=== PATIENT | male | born 1970 | race American Indian/Alaskan Native ===

== ENCOUNTER 2018-08-09 07:33 | Emergency (ER) | payer MEDICARE, MEDICAID ==
[2018-08-09 07:34] VITALS: BMI 33.4
[2018-08-09 08:08] VITALS: BP 185/94; PULSE 82; RESP 16; TEMP 99.5; O2SAT 99
--- NOTE | 2018-08-09 08:29 | C.PDOC ---
History Of Present Illness 48 y/o male pt sent to the ER by dialysis center with EMS for being drowsy. Pt usually takes dialysis Saturday, and Saturday. Pt was unable to receive dialysis today due to drowsiness. As per pt, he took xanax and heroin last night and this morning. Pt does not have any complaints at this time. Time Seen by Provider: 08/09/18 07:48 Chief Complaint (Nursing): Weakness/Neurological Deficit History Per: Patient History/Exam Limitations: no limitations Onset/Duration Of Symptoms: Hrs Current Symptoms Are (Timing): Still Present Past Medical History Reviewed: Historical Data, Nursing Documentation, Vital Signs Vital Signs: Last Vital Signs Temp 99.5 F 08/09/18 07:41 Pulse 82 08/09/18 07:41 Resp 16 08/09/18 07:41 BP 185/94 H 08/09/18 07:41 Pulse Ox 99 08/09/18 07:41 Primary Care Provider: Jignesh Peck - Medical History PMH: Bronchitis, Diabetes (IDDM), HTN, Pneumonia (2 yrs ago) - [facility] Procedures EXCISE CORD/EPID LES NEC (02/10/14) OTH & OPEN REPAIR INDIRECT INGUINAL HERNIA W GRFT OR PROSTH (02/10/14) Family History: States: No Known Family Hx - Social History Hx Alcohol Use: No Hx Substance Use: Yes (herion cocaine iv drug abuse clean x 2 yrs) Review Of Systems Except As Marked, All Systems Reviewed And Found Negative. Constitutional: Positive for: Other (drowsiness ) Gastrointestinal: Negative for: Nausea, Vomiting Neurological: Negative for: Weakness, Numbness Physical Exam - Physical Exam Appears: Non-toxic, No Acute Distress Skin: Warm, Dry Head: Normacephalic Eye(s): bilateral: PERRL, EOMI Chest: Symmetrical Cardiovascular: Rhythm Regular Respiratory: Normal Breath Sounds Extremity: Normal ROM (x4) Neurological/Psych: Oriented x3, Normal Speech, Normal Cognition, Normal Motor, Normal Sensation, Other (follows commands, resposive ) ED Course And Treatment O2 Sat by Pulse Oximetry: 99 (RA) Pulse Ox Interpretation: Normal Progress Note: Plans: -- chem labs. -- blood work. -- EKG. -- CXR. -- CT scan. Nurse found pt was taking some pills he had on him during his visit. Pt was told her had to be searched and became agitated. Pt states he does not want anyone to touch him and wants to leave without being treated. Pt was told the risk if he doesn't get treated. Pt verbalizes understanding. Pt left AMA. Medical Decision Making Medical Decision Making: This patient is choosing to leave against medical advice. I have personally explained to the patient that choosing to do so may result in permanent bodily harm or . I have discussed at great length that without further evaluation and monitoring there may be unforeseen circumstances and/or deterioration causing permanent bodily harm or as a result of their choice. The patient is alert, oriented, and shows the mental capacity to make clear decisions regarding the patients health care at this time. The patient continues to wish to leave against medical advice. In light of the patients decision to leave AMA, follow-up has been arranged and the patient is aware of the importance of following up as instructed. The patient has been advised that they should return to the ED immediately if they change their mind at any time, or if their condition begins to change or worsen in any way. Disposition - Disposition Disposition: AGAINST MEDICAL ADVICE Disposition Time: 08:29 Condition: FAIR Instructions: Weakness (ED) Forms: [facility] (Stateless) - Clinical Impression Clinical Impression: Weakness, Drug abuse, ESRD (end stage renal disease) on dialysis - PA / CHIP PERSON / Resident Statement MD/ has reviewed & agrees with the documentation as recorded. - Scribe Statement The provider has reviewed the documentation as recorded by the Logna Franz Do All medical record entries made by the Scribe were at my direction and personally dictated by me. I have reviewed the chart and agree that the record accurately reflects my personal performance of the history, physical exam, medical decision making, and the department course for this patient. I have also personally directed, reviewed, and agree with the discharge instructions and disposition.
--- NOTE | 2018-08-13 00:13 | CARD ---
APPROVED REPORT Date of service: 08/09/2018 EKG Measurement Heart [id number] <Conclusion> Normal sinus rhythm Possible Left atrial enlargement Left axis deviation Incomplete right bundle branch block Left ventricular hypertrophy Cannot rule out Septal infarct, age undetermined Abnormal ECG
== END 2018-08-09 08:25 | disposition left against medical advice (07) ==
LOC: C.ER 07:33
DX: R53.1 Weakness (principal); F19.10 Other psychoactive substance abuse, uncomplicated; N18.6 End stage renal disease; Z99.2 Dependence on renal dialysis